=== PATIENT | female | born 1950 | race Caucasian/White ===

== ENCOUNTER 2016-10-04 09:19 | Emergency (ER) | payer MEDICARE, MEDICAID ==
[2016-10-04 09:25] VITALS: TEMP 98.4; BMI 32.8
[2016-10-04] MEDS ORDERED: NACL 0.65% NASAL 45 ML BOTTLE NAS PRN (09:33)
[2016-10-04] MEDS ORDERED: DIPHENHYDRAMINE 25 MG CAP PO ONE (09:33)
--- NOTE | 2016-10-04 09:38 | EDPRACDOC ---
- General Information Chief Complaint: Flu-Like Symptoms Stated Complaint: SINUS PROBLEM Time Seen by Provider: 10/04/16 09:27 Information Source: Patient Mode Of Arrival: Car Home Medications: Home Medications Alprazolam [Xanax] 0.5 mg PO BID PRN 08/16/12 Prednisone [Deltasone, Orasone] 12.5 mg PO DAILY 08/16/12 Aspirin (Enteric Coated) [Halfprin] 81 mg PO DAILY 08/11/13 Cholecalciferol (Vitamin D3) [Vitamin D3 (cholecalciferol)] 5,000 unit PO DAILY 08/11/13 Albuterol Sulfate [Proair Hfa] 2 puff INH Q4H PRN 08/15/15 Azathioprine [Imuran] 150 mg PO QAM 08/15/15 Ca/D3/Mag/Zinc/Danuta/Ameya/Mgbor [Caltrate 600+D3+Min Chew Tab] 1 tab PO DAILY Multivits-Min/Iron/FA/Lutein [Centrum Silver Women Tablet] 1 tab PO DAILY POTASSIUM CHLORIDE Tablet [Klor-Con M20] 20 meq PO DAILY 08/15/15 Ranitidine [Zantac] 300 mg PO QHS 09/11/16 Acetaminophen [Mapap] 1,000 mg PO .ONCE 10/04/16 Azathioprine [Imuran] 100 mg PO QHS 10/04/16 Azithromycin [Zithromax] 250 mg PO DAILY #4 tab 10/04/16 Fluticasone Propionate [Flonase Nasal [place]] 1 spray PIA DAILY #1 each 10/04/16 Allergies/Adverse Reactions: Allergies Allergy/AdvReac Type Severity Reaction Status Date / Time codeine [Codeine] Allergy Hives* Verified 09/11/16 13:05 nortriptyline Allergy See Verified 09/11/16 13:05 Comments Penicillins Allergy Anaphylaxis Verified 09/11/16 13:05 * Sulfa (Sulfonamide Allergy Angioedema* Verified 09/11/16 13:05 Antibiotics) [Sulfa(Sulfonamide Antibiotics)] - History of Present Illness Onset: yesterday HPI: PT HAS HAD SINUS CONGESTION SINCE YESTERDAY. SHE SAID HER NOSE WON'T STOP RUNNING. SHE HAS TRIED AFRIN AND MUCINEX W/O HELP. NO FEVER, BUT SHE DID TAKE TYLENOL AROUND 0600. PT HAS NO SOB. Current Symptoms: Reports: Nasal Symptoms Shortness of Breath: None Rhinorrhea: Reports: Clear Ear Symptoms: Reports: None Fever Severity/Quality: Reports: no fever Oral Intake: Normal Urinary Output: Normal Relevant History of: Asthma - Treatment Prior to ED Arrival Reported Medications/Treatment ABA THERAPIST Ibuprofen/Acetaminophen (Dose/ Tylenol 2 tabs 0600 Time) Medications ABA THERAPIST (Medication/ Mucinex last night Dose/Time) ED Past Medical History - Patient Medical History Cardiac History: Reports: Congestive Heart Failure Respiratory History: Reports: Asthma, Pneumonia Psychological History: Denies: Depression Systemic History: Reports: Cancer (CERVICAL) Additional Past Medical History: MYASTHENIA GRAVIS Surgical History: Reports: Appendectomy, Cholecystectomy, Hysterectomy, Tonsillectomy/Adnoidectomy, Other (WRIST SURGERY) - Family Medical History Reports: Hypertension (mother), Diabetes (mother), Cancer (mother-lung, father- lung, sister cervical), Stroke (mother), Cardiac Disorders (mother) - Social Medical History Smoking Status: Never smoker ETOH: None Substance Abuse: None Lives In: Home EDM Review of Systems - Review of Systems ROS Negative Except as Marked: Yes All systems reviewed and were negative except as marked Nose: Congestion - Physical Exam Constitutional: Alert (Awake), No apparent distress Oriented to: Time, Person, Place Last recorded Vital Signs: Last Vital Signs Temp 98.4 F 10/04/16 09:20 Pulse 107 10/04/16 09:20 Resp 28 H 10/04/16 09:20 BP 171/78 10/04/16 09:20 Pulse Ox 97 10/04/16 09:20 Oxygen Pulse Oxygen Saturation 97 O2 Device Room Air Oxygen Flow Rate Fraction of Inspired Oxygen ( FIO2) - HEENT Head: Normal ( normocephalic) Eye Exam: Normal (PERRL, EOMI, Sclera white) Oropharynx: Normal (Pharynx:Moist without exudate,Gums-no swelling) Tympanic Membrane: Normal ENT EAC: Normal TMJ: Normal Nose: Congestion Neck: Normal (FROM, trachea at midline) - Respiratory/Cardiovascular Respiratory: Normal - CTA (BBS clear to auscultation without adventitious sounds ) Cardiovascular: Normal (RRR without murmur, gallop or rub) - GI Auscultation: Normal (NABS) Palpation: Normal (Soft,No rebound or guarding, non distended) Tenderness: Non tender Bhatti's Sign: Negative - Musculoskeletal Back: Normal (Non-Tender) Extremities: Normal (Normal tone, Pulses 2+ No cyanosis or edema, FROM) - Integumentary Skin: Normal, Warm, Dry Lymphatics: Normal (no adenopathy) - Neurologic Memory Impaired: Normal Motor Function: Normal (Normal tone, Pulses 2+ No cyanosis or edema, FROM) Cranial Nerve: Normal (CN II-X11 intact sensation, strength 5/5) Cerebellar: Normal Mood Description: Normal Thought: Coherent Perception: Normal Decision Time to Discharge: 10:14 - Departure Yes I personally saw and evaluated the patient. Disposition: Home Condition: Fair Final Diagnosis: URI (upper respiratory infection) Instructions: Upper Respiratory Infection (ED) Education/Counseling Given To: Patient Education/Counseling Given Regarding: Diagnosis, Treatment, Follow Up Prescriptions: Azithromycin [Zithromax] 250 mg PO DAILY #4 tab Fluticasone Propionate [Flonase Nasal [place]] 1 spray PIA DAILY #1 each Additional Instructions: OTC CLARITIN OR BENADRYL
[2016-10-04 10:25] VITALS: BP 131/76; PULSE 102
== END 2016-10-04 10:25 | disposition home or self-care (01) ==
LOC: ED 09:19
DX: J06.9 Acute upper respiratory infection, unspecified (principal)
CPT/HCPCS: 87804; 99283; A9270; J3490